=== PATIENT | female | born 1950 | race American Indian/Alaskan Native ===

== ENCOUNTER 2018-05-02 10:51 | Day surgery (SDC) | payer MEDICARE ==
[~2018-05-02 10:51] MED LIST: IOPIDINE ONE; MYDRIACYL ONE; NEOFRIN ONE
[2018-05-02] MEDS ORDERED: IOPIDINE OS ONE ×2 (11:30→12:18)
[2018-05-02] MEDS ORDERED: NEOFRIN OS ONE (11:30)
[2018-05-02] MEDS ORDERED: MYDRIACYL OS ONE (11:30)
[2018-05-02 12:16] VITALS: BP 134/77
== END 2018-05-02 12:30 | disposition home or self-care (01) ==
LOC: OR 10:51
PROVIDERS: ATTEND Specialist
DX: H26.492 Other secondary cataract, left eye (principal); E89.0 Postprocedural hypothyroidism; M19.90 Unspecified osteoarthritis, unspecified site; I10 Essential (primary) hypertension; Z98.891 History of uterine scar from previous surgery; Z79.899 Other long term (current) drug therapy; Z96.643 Presence of artificial hip joint, bilateral; Z79.84 Long term (current) use of oral hypoglycemic drugs; Z98.42 Cataract extraction status, left eye; Z98.890 Other specified postprocedural states
CPT/HCPCS: 82962